=== PATIENT | male | born 1970 | race Caucasian/White ===

== ENCOUNTER → 2017-08-31 | Outpatient (CLI) | payer BC ==
--- NOTE | 2017-08-31 14:19 | US ---
EXAMINATION TYPE: US kidneys/renal and bladder DATE OF EXAM: 08/31/2017 COMPARISON: CT abdomen and pelvis May 27, 2015 CLINICAL HISTORY: R31.21 MICROSCOPIC HEMATURIA. Hx of renal stones, no pain EXAM MEASUREMENTS: Right Kidney: 10.9 x 6.3 x 6.1 cm Left Kidney: 12.1 x 5.3 x 6.2 cm Right Kidney: Dromedary hump seen. Two echogenic foci seen, no shadowing, twinkle artifact seen = 0. 7 and 0.6 cm Left Kidney: wnl Bladder: distended, wnl as visualized Bilateral Jets seen There is no evidence for hydronephrosis at this point in time. No masses are identified. The urinar y bladder is anechoic. Bilateral ureteral jets are seen. IMPRESSION: No hydronephrosis is evident bilaterally. Nonshadowing hyperechoic foci is nonspecific could reflect nonobstructing right-sided renal calculi. No prior stones clearly seen at this level on prior CT. 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
== END | disposition home or self-care (01) ==
LOC: RADUSWWP 13:18
PROVIDERS: ATTEND Family Medicine
DX: R31.21 Asymptomatic microscopic hematuria (principal)
CPT/HCPCS: 76770

== ENCOUNTER → 2018-05-06 | Outpatient (CLI) | payer BC ==
[2018-05-06 17:06] LABS: Basophils # (A) 0.1 k/uL (0-0.2); Basophils % (A) 1 %; Eosinophils # (A) 0.4 k/uL (0-0.7); Eosinophils % (A) 4 %; HCT 45.5 % (39.0-53.0); HGB 15.5 gm/dL (13.0-17.5); Lymphocytes # (A) 2.5 k/uL (1.0-4.8); Lymphocytes % (A) 29 %; MCH 30.9 pg (25.0-35.0); MCHC 34.1 g/dL (31.0-37.0); MCV 90.5 fL (80.0-100.0); Mean Platelet Volume 6.5; Monocytes # (A) 0.6 k/uL (0-1.0); Monocytes % (A) 6 %; Neutrophils # (A) 4.9 k/uL (1.3-7.7); Neutrophils % (A) 57 %; Platelet Count 275 k/uL (150-450); RBC 5.03 m/uL (4.30-5.90); RDW 12.5 % (11.5-15.5); WBC 8.6 k/uL (3.8-10.6)
[2018-05-06 17:17] LABS: ALT 39 U/L (21-72); AST 32 U/L (17-59); Albumin 4.4 g/dL (3.5-5.0); Alkaline Phosphatase 66 U/L (38-126); Anion Gap 10 mmol/L; Blood Urea Nitrogen 25 mg/dL (9-20); Calcium 10.2 mg/dL (8.4-10.2); Carbon Dioxide 24 mmol/L (22-30); Chloride 103 mmol/L (98-107); Creatine Kinase 268 U/L (55-170); Glucose 112 mg/dL (74-99); Magnesium 1.9 mg/dL (1.6-2.3); Potassium 3.7 mmol/L (3.5-5.1); Sodium 137 mmol/L (137-145); Total Bilirubin 0.9 mg/dL (0.2-1.3); Total Protein 7.1 g/dL (6.3-8.2)
[2018-05-06 17:47] LABS: PSA Annual Screen 0.82 ng/mL (0.00-4.00)
== END ==
LOC: LABWHC1 16:35
PROVIDERS: ATTEND Family Medicine
DX: R31.9 Hematuria, unspecified (principal); R25.2 Cramp and spasm; Z12.5 Encounter for screening for malignant neoplasm of prostate
CPT/HCPCS: 80053; 82550; 83735; 85025; 82306; 36415; G0103

== ENCOUNTER → 2018-08-09 | Outpatient (CLI) | payer BC ==
--- NOTE | 2018-08-09 12:07 | US ---
EXAMINATION TYPE: US venous doppler duplex LE LT DATE OF EXAM: 08/09/2018 11:49 AM COMPARISON: NONE CLINICAL HISTORY: I82.409 DVT of lower extremity. Left upper posterior calf pain x 3 weeks SIDE PERFORMED: Left TECHNIQUE: The lower extremity deep venous system is examined utilizing real time linear array sonog michele with graded compression, doppler sonography and color-flow sonography. VESSELS IMAGED: Common Femoral Vein Deep Femoral Vein Greater Saphenous Vein * Femoral Vein Popliteal Vein Small Saphenous Vein * Proximal Calf Veins (* superficial vessels) Left Leg: Negative for DVT. At patient's area of pain, a dilated Gastrocnemius Vein is noted, but paired veins compress. Thick blood (Rouleaux Effect) is noted within the dilated Gastrocnemius Vein, but blood moves with distal augmentation. Grayscale, color doppler, spectral doppler imaging performed of the deep veins of the left lower extr emity. There is normal flow, compressibility, vascular waveforms. IMPRESSION: No ultrasound evidence for acute DVT in the left lower extremity.
== END | disposition home or self-care (01) ==
LOC: RADUSWWP 11:15
PROVIDERS: ATTEND Family Medicine
DX: I82.409 Acute embolism and thrombosis of unspecified deep veins of unspecified lower extremity (principal)

== ENCOUNTER 2019-08-02 07:23 | Day surgery (SDC) | payer BC ==
[2019-07-31 10:58] VITALS: BMI 32.6
[~2019-08-02 07:23] MED LIST: LACTATED RINGERS 1,000 ML IV SCH; LIDOCAINE 1% 20 ML VIAL (10MG/ML) FOR IV START INTRADERMA PRN
--- NOTE | 2019-08-02 07:47 | P.GSHP ---
History of Present Illness H&P Date: 08/02/19 CHIEF COMPLAINT: Colon screen HISTORY OF PRESENT ILLNESS: The patient is a 49-year-old male who presents for colon screen. Lower endoscopy was offered for further evaluation and management. PAST MEDICAL HISTORY: Please see list. PAST SURGICAL HISTORY: Please see list. MEDICATIONS: Please see list. ALLERGIES: Please see list. SOCIAL HISTORY: No illicit drug use FAMILY HISTORY: No reports of Crohn disease or ulcerative colitis. REVIEW OF ORGAN SYSTEMS: CONSTITUTIONAL: No reports of fevers or chills. PHYSICAL EXAM: VITAL SIGNS: Stable GENERAL: Well-developed pleasant in no acute distress. HEENT: No scleral icterus. Extraocular movements grossly intact. Moist buccal mucosa. NECK: Supple without lymphadenopathy. CHEST: Unlabored respirations. Equal bilateral excursions. CARDIOVASCULAR: Regular rate and rhythm. Distal 2+ pulses. ABDOMEN: Soft, nontender, nondistended. MUSCULOSKELETAL: No clubbing, cyanosis, or edema. ASSESSMENT: 1. Colon screen. PLAN: 1. Recommend proceeding with a lower endoscopy Past Medical History Past Medical History: Diabetes Mellitus, GERD/Reflux, Hyperlipidemia, Hypertension Additional Past Medical History / Comment(s): KIDNEY STONES History of Any Multi-Drug Resistant Organisms: None Reported Past Surgical History: Cholecystectomy, Joint Replacement, Orthopedic Surgery Additional Past Surgical History / Comment(s): BILAT TKA. RT FOOT SX Past Anesthesia/Blood Transfusion Reactions: Postoperative Nausea & Vomiting (PONV) Smoking Status: Former smoker - Past Family History Mother Family Medical History: No Reported History Medications and Allergies Home Medications Medication Instructions Recorded Confirmed Type Aspirin [Adult Low Dose Aspirin EC] 81 mg PO DAILY 07/31/19 07/31/19 History Atorvastatin [Lipitor] 80 mg PO DAILY 07/31/19 07/31/19 History Cholecalciferol [Vitamin D3 (25 5,000 unit PO DAILY 07/31/19 07/31/19 History Mcg = 1000 Iu)] Cinnamon Bark [Cinnamon] 1,000 mg PO DAILY 07/31/19 07/31/19 History Cyanocobalamin (Vitamin B-12) 2,500 mcg PO DAILY 07/31/19 07/31/19 History [Vitamin B-12] Cyclobenzaprine [Flexeril] 10 mg PO HS 07/31/19 07/31/19 History Dapagliflozin Propanediol [Farxiga] 10 mg PO HS 07/31/19 07/31/19 History Fenofibrate 54 mg PO DAILY 07/31/19 07/31/19 History Fluticasone Nasal [place] [Flonase 1 spray EA NOSTRIL DAILY 07/31/19 07/31/19 History Nasal [place]] Lisinopril-Hctz 20-12.5 mg 1 tab PO DAILY 07/31/19 07/31/19 History [Zestoretic 20-12.5] Melatonin 10 mg PO HS 07/31/19 07/31/19 History Multivit-Min/Folic/Vit K/Lycop 1 each PO DAILY 07/31/19 07/31/19 History [Men's Multivitamin Tablet] Naproxen Sodium 220 mg PO DAILY 07/31/19 07/31/19 History [place]-3/Dha/Epa/Fish Oil [Fish Oil 2 cap PO DAILY 07/31/19 07/31/19 History 500 mg Softgel] Omeprazole 20 mg PO DAILY 07/31/19 07/31/19 History PARoxetine HCL 20 mg PO HS 07/31/19 07/31/19 History Potassium Citrate [Urocit-K] 10 meq PO BID 07/31/19 07/31/19 History Tumeric 500 mg PO DAILY 07/31/19 History Zinc 50 mg PO DAILY 07/31/19 07/31/19 History diphenhydrAMINE [Benadryl] 25 mg PO HS PRN 07/31/19 07/31/19 History metFORMIN HCL [Glucophage] 500 mg PO BID 07/31/19 07/31/19 History rOPINIRole HCL [Requip] 2 mg PO HS 07/31/19 07/31/19 History sitaGLIPtin [Januvia] 100 mg PO DAILY 07/31/19 07/31/19 History Allergies Allergy/AdvReac Type Severity Reaction Status Date / Time No Known Allergies Allergy Verified 07/31/19 10:50
[2019-08-02 07:55] VITALS: RESP 16; TEMP 97.1
[2019-08-02] MEDS ORDERED: PROPOFOL 10 MG/ML 20 ML VIAL IV ONE (08:05)
[2019-08-02] MEDS ORDERED: LIDOCAINE 1% INJ 10MG/ML (20 ML MDV) ONE (08:05)
[2019-08-02 08:13] LABS: Glucose,Whole Blood 213 mg/dL (75-99)
--- NOTE | 2019-08-02 08:34 | P.PCN ---
Date of Procedure: 08/02/19 Description of Procedure: PREOPERATIVE DIAGNOSIS: Colonoscopy screening, first Family history colon polyps, brother POSTOPERATIVE DIAGNOSIS: Colonoscopy screening, first Family history colon polyps, brother OPERATION: Colonoscopy to the ileocecal valve and appendiceal orifice. SURGEON: Nancy Sanches MD. ANESTHESIA: MAC. INDICATIONS: The patient is a 49-year-old male who presents for colonoscopy screening. Benefits and risks were described and informed consent was obtained. DESCRIPTION OF PROCEDURE: The patient had undergone Suprep. He had been brought into the operating room and laid in the left lateral decubitus position. After adequate intravenous sedation, the rectum was examined with 2% lidocaine jelly. No external hemorrhoids were encountered. The prostatic fossa was unremarkable. The rectal tone was within normal limits. No lesions were palpated in the rectal vault. An Olympus colonoscope was advanced until the ileocecal valve and appendiceal orifice were clearly viewed. The prep was very foamy limiting complete view of the mucosa. No large colonic polyps were found. No [place] sigmoid diverticulosis was found. No evidence of focal colitis was found. Retroflexion of the scope demonstrated grade 1 internal hemorrhoids without active bleeding or inflammation. The colon was desufflated. The patient had tolerated the procedure well. Withdrawal time was over 6 minutes. FINDINGS: Aronchick preparation quality scale 2 (1-5) Internal hemorrhoids, grade 1 No external prolapsed hemorrhoids. No arteriovenous malformations. No adenomatous polyps. No focal colitis. RECOMMENDATIONS: Lower endoscopy in 5 years, July 2024 Plan - Discharge Summary Discharge Rx Participant: No New Discharge Prescriptions: No Action Tumeric 500 mg PO DAILY Aspirin [Adult Low Dose Aspirin EC] 81 mg PO DAILY Atorvastatin [Lipitor] 80 mg PO DAILY Cholecalciferol [Vitamin D3 (25 Mcg = 1000 Iu)] 5,000 unit PO DAILY Cinnamon Bark [Cinnamon] 1,000 mg PO DAILY Cyanocobalamin (Vitamin B-12) [Vitamin B-12] 2,500 mcg PO DAILY Cyclobenzaprine [Flexeril] 10 mg PO HS Dapagliflozin Propanediol [Farxiga] 10 mg PO HS diphenhydrAMINE [Benadryl] 25 mg PO HS PRN PRN Reason: SLEEP Fenofibrate 54 mg PO DAILY Fluticasone Nasal [place] [Flonase Nasal [place]] 1 spray EA NOSTRIL DAILY Lisinopril-Hctz 20-12.5 mg [Zestoretic 20-12.5] 1 tab PO DAILY Melatonin 10 mg PO HS metFORMIN HCL [Glucophage] 500 mg PO BID Multivit-Min/Folic/Vit K/Lycop [Men's Multivitamin Tablet] 1 each PO DAILY Naproxen Sodium 220 mg PO DAILY [place]-3/Dha/Epa/Fish Oil [Fish Oil 500 mg Softgel] 2 cap PO DAILY Omeprazole 20 mg PO DAILY PARoxetine HCL 20 mg PO HS Potassium Citrate [Urocit-K] 10 meq PO BID rOPINIRole HCL [Requip] 2 mg PO HS sitaGLIPtin [Januvia] 100 mg PO DAILY Zinc 50 mg PO DAILY Discharge Medication List Aspirin [Adult Low Dose Aspirin EC] 81 mg PO DAILY 07/31/19 [History] Atorvastatin [Lipitor] 80 mg PO DAILY 07/31/19 [History] Cholecalciferol [Vitamin D3 (25 Mcg = 1000 Iu)] 5,000 unit PO DAILY 07/31/19 [History] Cinnamon Bark [Cinnamon] 1,000 mg PO DAILY 07/31/19 [History] Cyanocobalamin (Vitamin B-12) [Vitamin B-12] 2,500 mcg PO DAILY 07/31/19 [History] Cyclobenzaprine [Flexeril] 10 mg PO HS 07/31/19 [History] Dapagliflozin Propanediol [Farxiga] 10 mg PO HS 07/31/19 [History] Fenofibrate 54 mg PO DAILY 07/31/19 [History] Fluticasone Nasal [place] [Flonase Nasal [place]] 1 spray EA NOSTRIL DAILY 07/31/19 [History] Lisinopril-Hctz 20-12.5 mg [Zestoretic 20-12.5] 1 tab PO DAILY 07/31/19 [History] Melatonin 10 mg PO HS 07/31/19 [History] Multivit-Min/Folic/Vit K/Lycop [Men's Multivitamin Tablet] 1 each PO DAILY 07/31/19 [History] Naproxen Sodium 220 mg PO DAILY 07/31/19 [History] [place]-3/Dha/Epa/Fish Oil [Fish Oil 500 mg Softgel] 2 cap PO DAILY 07/31/19 [History] Omeprazole 20 mg PO DAILY 07/31/19 [History] PARoxetine HCL 20 mg PO HS 07/31/19 [History] Potassium Citrate [Urocit-K] 10 meq PO BID 07/31/19 [History] Tumeric 500 mg PO DAILY 07/31/19 [History] Zinc 50 mg PO DAILY 07/31/19 [History] diphenhydrAMINE [Benadryl] 25 mg PO HS PRN 07/31/19 [History] metFORMIN HCL [Glucophage] 500 mg PO BID 07/31/19 [History] rOPINIRole HCL [Requip] 2 mg PO HS 07/31/19 [History] sitaGLIPtin [Januvia] 100 mg PO DAILY 07/31/19 [History] Follow up Appointment(s)/Referral(s): Nancy Sanches MD [STAFF PHYSICIAN] - As Needed Patient Instructions/Handouts: *[facility] - (Anesthesia) Endoscopy Discharge Instructions Activity/Diet/Wound Care/Special Instructions: Repeat colonoscopy in 5 years, July 2024 Discharge Disposition: HOME SELF-CARE
[2019-08-02 08:50] VITALS: BP 120/68; PULSE 77
== END 2019-08-02 09:09 | disposition home or self-care (01) ==
LOC: ORWHC2ENDO 07:23
PROVIDERS: ATTEND Surgery Plastic and Reconstructive Surgery
DX: Z12.11 Encounter for screening for malignant neoplasm of colon (principal); K64.0 First degree hemorrhoids; Z83.71 Family history of colonic polyps; I10 Essential (primary) hypertension; E11.9 Type 2 diabetes mellitus without complications; E78.5 Hyperlipidemia, unspecified; K21.9 Gastro-esophageal reflux disease without esophagitis; Z79.82 Long term (current) use of aspirin; Z79.899 Other long term (current) drug therapy; Z79.84 Long term (current) use of oral hypoglycemic drugs; Z87.442 Personal history of urinary calculi; Z90.49 Acquired absence of other specified parts of digestive tract; Z96.653 Presence of artificial knee joint, bilateral; Z98.890 Other specified postprocedural states; Z87.891 Personal history of nicotine dependence
CPT/HCPCS: J2001; J2704; G0121

== ENCOUNTER → 2023-09-02 | Outpatient (CLI) | payer BC ==
--- NOTE | 2023-09-02 15:35 | P.SLEEP ---
History of Present Illness DATE: 09/02/2023 CONSULTATION/NEW PATIENT EVALUATION HISTORY OF PRESENT ILLNESS/SLEEP-WAKE EVALUATION: 53 year old gentleman had been evaluated in the sleep center for possible obstructive sleep apnea hypopnea syndrome. Patient has history of obstructive sleep apnea in the past, about 15 years ago, patient was on treatment with CPAP, for last 5 years patient is not on any treatment. 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 During the days off he sleeps from 11 PM to 9 AM. FALLING ASLEEP: Usually no problems with falling asleep. DURING SLEEP: Patient has a very loud snoring and multiple awakenings from sleep with dry mouth, gasping for air, episodes of stop breathing during the sleep witnessed by his , sweating and nocturia. Positive history of restless leg symptoms No history of hypnogogical hallucinations, sleep paralysis, or cataplexy. DURING THE DAY/WAKE STATE: After sleep patient wake up tired, has problems with memory, concentration, irritability. Wideman sleepiness scale is 8. Patient feels sleepiness during the day, take naps in the evening. PAST MEDICAL HISTORY: Hypertension, diabetes mellitus, anxiety, acid reflux, BPH, hyperlipidemia. PAST SURGICAL HISTORY: Bilateral knee replacement, cholecystectomy. MEDICATIONS: Insulin, trazodone 50 mg for sleep, atorvastatin 80 mg once a day, metformin 1000 mg twice a day, lisinoprilhydrochlorothiazide 2012.5 mg once a day. SOCIAL HISTORY: Positive history of snoring for about 20 pack years, quit about 10 years ago, alcohol consumption occasional. FAMILY HISTORY: Hypertension, heart problems, . REVIEW OF SYSTEMS: Loud snoring, multiple awakenings from sleep. No fevers. No double vision. No recent chest pain. No shortness of breath. No abdominal pain. No bleeding episodes. No blood in urine. No seizure episodes. PHYSICAL EXAMINATION: GENERAL: A pleasant patient without any distress. VITAL SIGNS: BP 144/85 , HR 83 , RR 16 , weight 209 pounds, height 5 foot 9-1/4 inches, body mass index 30.6 . HEENT: PERRLA, EOMI. Evaluation of oropharynx showed tongue protrudes midline, low position of soft palate Mallampati 4. NECK: Supple. No JVD. Thyroid is not palpable. 16-7/8 inches in circumference. LUNGS: Clear to percussion and to auscultation. Good air exchange. No wheezing or rhonchi. HEART: S1, S2 regular. No murmurs, gallops or rubs. ABDOMEN: Soft and nontender. Bowel sounds are present. No organomegaly appreciated. EXTREMITIES: No clubbing or cyanosis. RESTAURANT GREETER: Awake, alert, and oriented x3. Cranial nerves 2 to 7 intact. There is no fasciculation or atrophy noted. No focal deficits observed. ASSESSMENT: 1. Snoring, witnessed episodes of stop breathing during the sleep, extremely low position of soft palate Mallampati 4, history of obstructive sleep apnea in the past. Obstructive sleep apnea hypopnea syndrome. 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 3. Hypertension. 4. Diabetes mellitus. 5 history of anxiety. 6 . History of acid reflux. 7. BPH. 8. Hyperlipidemia. 9 . Status post bilateral knee replacement. 10. Status post cholecystectomy. PLAN: 1. Polysomnography for evaluation of patient's breathing during sleep. 2. Following plan after reading sleep study. 3. Preferable position during sleep on the side. 4. No driving if patient feels any sleepiness. Patient is aware of civil and criminal liability for unsafe driving. 5. Sleep hygiene with regular sleep time for at least 7.5-8 hours. 6. Watching weight. Thank you very much for referring this patient for consultation. Sincerely, Stuart Hernandez MD, PhD, FAASM. Diplomat of [place] [employer], Sleep Medicine Board by [place] Retail Planning Manager of [facility] [place] Past Medical History Past Medical History: Diabetes Mellitus, GERD/Reflux, Hyperlipidemia, Hypertension Additional Past Medical History / Comment(s): KIDNEY STONES History of Any Multi-Drug Resistant Organisms: None Reported Past Surgical History: Cholecystectomy, Joint Replacement, Orthopedic Surgery Additional Past Surgical History / Comment(s): BILAT TKA. RT FOOT SX Past Anesthesia/Blood Transfusion Reactions: Postoperative Nausea & Vomiting (PONV) Past Psychological History: No Psychological Hx Reported Past Alcohol Use History: Occasional Additional Past Alcohol Use History / Comment(s): QUIT SMOKING 15 YEARS AGO Past Drug Use History: None Reported - Past Family History Mother Family Medical History: No Reported History Medications and Allergies Home Medications Medication Instructions Recorded Confirmed Type Aspirin [Adult Low Dose Aspirin EC] 81 mg PO DAILY 07/31/19 07/31/19 History Atorvastatin [Lipitor] 80 mg PO DAILY 07/31/19 08/02/19 History Cholecalciferol [Vitamin D3 (25 5,000 unit PO DAILY 07/31/19 07/31/19 History Mcg = 1000 Iu)] Cinnamon Bark [Cinnamon] 1,000 mg PO DAILY 07/31/19 07/31/19 History Cyanocobalamin (Vitamin B-12) 2,500 mcg PO DAILY 07/31/19 07/31/19 History [Vitamin B-12] Cyclobenzaprine [Flexeril] 10 mg PO HS 07/31/19 07/31/19 History Dapagliflozin Propanediol [Farxiga] 10 mg PO HS 07/31/19 07/31/19 History Fenofibrate 54 mg PO DAILY 07/31/19 07/31/19 History Fluticasone Nasal [place] [Flonase 1 spray EA NOSTRIL DAILY 07/31/19 07/31/19 History Nasal [place]] Lisinopril-Hctz 20-12.5 mg 1 tab PO DAILY 07/31/19 08/02/19 History [Zestoretic 20-12.5] Melatonin 10 mg PO HS 07/31/19 08/02/19 History Multivit-Min/Folic/Vit K/Lycop 1 each PO DAILY 07/31/19 07/31/19 History [Men's Multivitamin Tablet] Naproxen Sodium 220 mg PO DAILY 07/31/19 07/31/19 History [place]-3/Dha/Epa/Fish Oil [Fish Oil 2 cap PO DAILY 07/31/19 07/31/19 History 500 mg Softgel] Omeprazole 20 mg PO DAILY 07/31/19 08/02/19 History PARoxetine HCL 20 mg PO HS 07/31/19 07/31/19 History Potassium Citrate [Urocit-K] 10 meq PO BID 07/31/19 08/02/19 History Tumeric 500 mg PO DAILY 07/31/19 History Zinc 50 mg PO DAILY 07/31/19 07/31/19 History diphenhydrAMINE [Benadryl] 25 mg PO HS PRN 07/31/19 07/31/19 History metFORMIN HCL [Glucophage] 500 mg PO BID 07/31/19 08/02/19 History rOPINIRole HCL [Requip] 2 mg PO HS 07/31/19 07/31/19 History sitaGLIPtin [Januvia] 100 mg PO DAILY 07/31/19 08/02/19 History Allergies Allergy/AdvReac Type Severity Reaction Status Date / Time No Known Allergies Allergy Verified 08/02/19 07:54 Sleep Note - Sleep Note Sleep Note: Temperature: Pulse Rate: Respiratory Rate: Blood Pressure: SpO2: Height: Weight: BMI: Neck Circumference:
== END ==
LOC: 3 N SLEEP 14:26
PROVIDERS: ATTEND Internal Medicine
DX: G47.33 Obstructive sleep apnea (adult) (pediatric) (principal); I10 Essential (primary) hypertension; E11.9 Type 2 diabetes mellitus without complications; F41.9 Anxiety disorder, unspecified; K21.9 Gastro-esophageal reflux disease without esophagitis; N40.0 Benign prostatic hyperplasia without lower urinary tract symptoms; E78.5 Hyperlipidemia, unspecified; Z96.653 Presence of artificial knee joint, bilateral; Z98.890 Other specified postprocedural states; Z90.49 Acquired absence of other specified parts of digestive tract; Z79.4 Long term (current) use of insulin; Z79.84 Long term (current) use of oral hypoglycemic drugs; Z79.899 Other long term (current) drug therapy; Z87.891 Personal history of nicotine dependence; Z79.82 Long term (current) use of aspirin
CPT/HCPCS: 99202

== ENCOUNTER → 2024-03-07 | Outpatient (CLI) | payer BC ==
--- NOTE | 2024-03-22 11:30 | SLS ---
SLEEP STUDY PROCEDURE: Home sleep apnea test. Home sleep apnea test has been done following standard procedure with monitoring of respiration by pressure transducer, oximetry, and belt for the chest movements. Recording done for 12 hours. Evaluation time 11 hours 17 minutes. Respiratory channel showed 23 apneas and 163 hypopneas with total apnea-hypopnea index 16.5 with oxygen desaturation to 81%. Heart rate in the range between 40 and 109, average 83 by computer calculation. IMPRESSION: 1. Moderate obstructive sleep apnea-hypopnea syndrome. Please see other impressions from consultation. PLAN: 1. CPAP titration for correction of respiratory abnormalities during sleep. 2. Sleep hygiene with regular time in bed for at least 8 hours. 3. Watching weight. 4. No driving if feeling sleepiness. Thank you very much for allowing me to participate in management of your patient. Sincerely, Stuart Hernandez MD, PhD, FAASM Diplomat of [employer] Sleep Medicine Board of [employer] Entry Driver Operator of [facility] [place] MMODL / VERONICAN: [id number] / KATHLEEN
== END ==
LOC: 3 N SLEEP 11:00
PROVIDERS: ATTEND Internal Medicine

== ENCOUNTER 2024-06-20 07:15 | Outpatient (CLI) | payer BC ==
[2024-06-21 08:56] VITALS: BP 124/76; TEMP 97.7
--- NOTE | 2024-07-03 10:55 | P.PCN ---
Description of Procedure: CLINICAL: Titration with positive air pressure has been done for correction of respiratory abnormalities during sleep. DESCRIPTION OF PROCEDURE: The standard montage for clinical polysomnography included the electroencephalogram, the electrocardiogram, the mentalis surface electromyography and Lead II cardiography. The respiratory battery consisted of measurements of nasal /buccal air flow, pressure transducer measurements from the nose, thoracic and /or abdominal effort and intercostal surface electromyography. Video monitoring has been done to check for any parasomnia events. Nocturnal oxyhemoglobin saturations were obtained by finger oximetry. Step-ruiz titration with positive airway pressure was utilized to control respiratory events. Raw data of sleep recording has been reviewed and is adequate. RESULTS: Sleep efficiency was decreased to 72.3%. Latency to sleep onset was short 4.5 minutes. Sleep architecture showed stage N1 was significantly increased to 19.5%, Delta sleep was normal 5.0%, REM sleep was normal 21.1%. Heart rate was minimum 67 BPM, maximum 74 BPM, average 70 BPM. EMG showed 50.5 periodic limb movements per hour with 1.5 micriarousals per hour. PAP titration have been done with CPAP up to the pressure 15 cm H2O. The best results were at the pressure 14 cm H2O. Apnea hypopnea index reduced to 0. IMPRESSION: 1. Obstructive sleep apnea hypopnea syndrome on controle with PAP treatment. 2. Significant periodic limb movements have been documented. Please see other impressions from consultation. PLAN: 1. The patient will have treatment with positive air pressure equipment with the level of pressure AutoPAP 6-15 cm H2O and should use it every night for the whole night. 2. Watching weight. 3. Sleep hygiene with regular time in bed for at least 8 hours. 4. No driving if feeling any sleepiness. 5. I will see the patient for follow up visit to explain the results of the test, recommendations, check compliance with treatment and make any necessary adjustment related to mask fitting, pressure and humidification. 6. Please check iron profile including ferritin level. Low level of iron may increase risk for periodic limb movements Thank you very much for allowing me to participate in the management of your patient. Sincerely, Stuart Hernandez MD, PhD, FAASM Diplomat of [employer] Sleep Medicine Board of [place] Mosaicist of [facility] [place] cc: Delano Lira MD
== END 2024-06-20 17:00 | disposition home or self-care (01) ==
LOC: 3 N SLEEP 07:15
PROVIDERS: ATTEND Internal Medicine
DX: G47.33 Obstructive sleep apnea (adult) (pediatric) (principal); G47.61 Periodic limb movement disorder; Z87.891 Personal history of nicotine dependence
CPT/HCPCS: 95811

== ENCOUNTER → 2024-09-21 | Outpatient (CLI) | payer BC ==
[2024-09-21 16:09] VITALS: BP 147/75; PULSE 76; RESP 16; TEMP 98
--- NOTE | 2024-09-21 16:54 | P.PROGSL ---
Subjective DATE: 09/21/2024 FOLLOW UP VISIT. Patient with obstructive sleep apnea hypopnea syndrome return to sleep center for follow-up visit. This is the first visit after patient started treatment with CPAP unit. Information from previous visit have been reviewed. I explained to the patient results of sleep studies in details. Patient is using PAP equipment every night for the whole night, getting PAP supplies in time. Patient feels better with CPAP therapy The patient does not have significant problems with the mask, PAP unit and humidification. Tropic sleepiness scale is 6, which is normal. I checked information from PAP unit. PAP unit pressure 6-15, average 12.7 cm H2O. Usage is 100% and 83% for more then 4 hours, average 6.5 hours per night. Leak is 20.8 l/m, which is in acceptable range. Apnea Hypopnea Index is 1.2, which is normal. MEDICATIONS have been reviewed, please see below. During physical exam: GENERAL: A pleasant patient without any distress. VITAL SIGNS: Please see below, weight is 204 lbs. HEENT: PERRLA, EOMI.low position of soft palate, Mallapati 4 . NECK: Supple. No JVD. LUNGS: Clear to percussion and to auscultation. Good air exchange. No wheezing or rhonchi. HEART: S1, S2 regular. ABDOMEN: Soft and nontender.[] EXTREMITIES: No clubbing or cyanosis. BODY WIRER: Awake, alert, and oriented x3. No focal deficit. Impressions: 1. Obstructive sleep apnea-hypopnea syndrome. Patient demonstrated great compliance with treatment, benefiting from treatment. 2. Hypertension. 3. Diabetes mellitus. 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 5. History of anxiety. 6. History of acid reflux. 7. BPH. 8. Hyperlipidemia. 9. Status post cholecystectomy. 10. Status post bilateral knee replacement. Plan: 1. Continue using PAP equipment every night for the whole night. 2. Sleep hygiene with regular time in bed for at least 7.5-8 hours 3. PAP unit should stay lower then position of the head. 4. Advised patient to remove all remaining water from humidifier canister daily and make it dry after each usage. Refill canister with fresh distilled water before each usage. 5. Watching weight. 6. Precautions related to driving. No driving if feel any sleepiness. 7. I will maintain prescription for PAP supplies including mask, tube, filters. 8. Follow up visit in 8 months or earlier if patient has any problems. Thank you very much for allowing me to participate in the management of your patient. Stuart Hernandez MD, PhD, FAASM. Diplomat of [employer], Sleep Medicine Board by [employer] Research/Program Director of [facility] Objective - Vital Signs Vital Signs: Vital Signs Temp 98 F 09/21/24 16:07 Pulse 76 09/21/24 16:07 Resp 16 09/21/24 16:07 BP 147/75 09/21/24 16:07 Pulse Ox 98 09/21/24 16:07 FiO2 Home Medications: Home Medications Medication Instructions Recorded Confirmed Type Aspirin [Adult Low Dose Aspirin EC] 81 mg PO DAILY 07/31/19 07/31/19 History Atorvastatin [Lipitor] 80 mg PO DAILY 07/31/19 08/02/19 History Cholecalciferol [Vitamin D3 (25 5,000 unit PO DAILY 07/31/19 07/31/19 History Mcg = 1000 Iu)] Cinnamon Bark [Cinnamon] 1,000 mg PO DAILY 07/31/19 07/31/19 History Cyanocobalamin (Vitamin B-12) 2,500 mcg PO DAILY 07/31/19 07/31/19 History [Vitamin B-12] Cyclobenzaprine [Flexeril] 10 mg PO HS 07/31/19 07/31/19 History Dapagliflozin Propanediol [Farxiga] 10 mg PO HS 07/31/19 07/31/19 History Fenofibrate 54 mg PO DAILY 07/31/19 07/31/19 History Fluticasone Nasal [place] [Flonase 1 spray EA NOSTRIL DAILY 07/31/19 07/31/19 History Nasal [place]] Lisinopril-Hctz 20-12.5 mg 1 tab PO DAILY 07/31/19 08/02/19 History [Zestoretic 20-12.5] Melatonin 10 mg PO HS 07/31/19 08/02/19 History Multivit-Min/Folic/Vit K/Lycop 1 each PO DAILY 07/31/19 07/31/19 History [Men's Multivitamin Tablet] Naproxen Sodium 220 mg PO DAILY 07/31/19 07/31/19 History [place]-3/Dha/Epa/Fish Oil [Fish Oil 2 cap PO DAILY 07/31/19 07/31/19 History 500 mg Softgel] Omeprazole 20 mg PO DAILY 07/31/19 08/02/19 History PARoxetine HCL 20 mg PO HS 07/31/19 07/31/19 History Potassium Citrate [Urocit-K] 10 meq PO BID 07/31/19 08/02/19 History Tumeric 500 mg PO DAILY 07/31/19 History Zinc 50 mg PO DAILY 07/31/19 07/31/19 History diphenhydrAMINE [Benadryl] 25 mg PO HS PRN 07/31/19 07/31/19 History metFORMIN HCL [Glucophage] 500 mg PO BID 07/31/19 08/02/19 History rOPINIRole HCL [Requip] 2 mg PO HS 07/31/19 07/31/19 History sitaGLIPtin [Januvia] 100 mg PO DAILY 07/31/19 08/02/19 History
== END ==
LOC: 3 N SLEEP 15:40
PROVIDERS: ATTEND Internal Medicine
DX: E11.9 Type 2 diabetes mellitus without complications (principal); G47.33 Obstructive sleep apnea (adult) (pediatric); I10 Essential (primary) hypertension; E78.5 Hyperlipidemia, unspecified; N40.0 Benign prostatic hyperplasia without lower urinary tract symptoms; Z90.49 Acquired absence of other specified parts of digestive tract; Z86.59 Personal history of other mental and behavioral disorders; Z96.653 Presence of artificial knee joint, bilateral; Z87.19 Personal history of other diseases of the digestive system; Z87.891 Personal history of nicotine dependence
CPT/HCPCS: 99212